=== PATIENT | female | born 1970 | race Native Hawaiian/Other Pacific Islander ===

== ENCOUNTER 2017-05-05 23:29 | Emergency (ER) | payer OTHER, BC ==
[2017-05-06 00:10] VITALS: BP 140/91
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
[2017-05-06] MEDS ORDERED: MOTRIN PO ONE (02:10)
[2017-05-06] MEDS ORDERED: FLEXERIL PO ONE (02:12)
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
== END 2017-05-06 06:18 | disposition home or self-care (01) ==
LOC: ED 23:29
DX: G44.319 Acute post-traumatic headache, not intractable (principal); M25.50 Pain in unspecified joint; M54.5 Low back pain; V49.49XA Driver injured in collision with other motor vehicles in traffic accident, initial encounter; Y93.9 Activity, unspecified; Y92.9 Unspecified place or not applicable; Y99.9 Unspecified external cause status
CPT/HCPCS: 70450; 72125; 72131; 99283

== ENCOUNTER 2017-06-26 00:52 | Emergency (ER) | payer BC, OTHER ==
[2017-06-26 02:15] LABS: Eosinophils % (Auto) 0.2 % (0.0-4.3); Hematocrit 40.1 % (30.3-42.9); Hemoglobin 13.8 gm/dl (10.1-14.3); Mean Corpuscular HGB Conc 34 % (30-34); Mean Corpuscular Hemoglobin 31 pg (28-32); Mean Corpuscular Volume 90 fl (79-97); Platelet Count 294 K/mm3 (140-440); Red Blood Count 4.44 M/mm3 (3.65-5.03); Red Cell Distribution Width 12.9 % (13.2-15.2); White Blood Count 10.1 K/mm3 (4.5-11.0)
[2017-06-26 02:32] LABS: Alanine Aminotransferase 27 units/L (7-56); Albumin 4.4 g/dL (3.9-5); Albumin/Globulin Ratio 1.3 %; Alkaline Phosphatase 66 units/L (35-129); Anion Gap 17 mmol/L; Blood Urea Nitrogen 11 mg/dL (7-17); Calcium 9.6 mg/dL (8.4-10.2); Carbon Dioxide 26 mmol/L (22-30); Chloride 98.2 mmol/L (98-107); Glucose 173 mg/dL (65-100); Lipase 19 units/L (13-60); Potassium 3.6 mmol/L (3.6-5.0); Sodium 138 mmol/L (137-145); Total Protein 7.7 g/dL (6.3-8.2)
[2017-06-26 03:48] LABS: Bilirubin,Urine NEG (Negative); Blood,Urine NEG (Negative); Ketones,Urine 80 mg/dL (Negative); Leukocyte Esterase,Urine TR (Negative); Mucus,Urine 2+ /HPF; Nitrite,Urine NEG (Negative); Urobilinogen,Urine < 2.0 mg/dL (<2.0)
[2017-06-26] MEDS ORDERED: NACL 0.9% 1000 ML 1,000 ML IV ONE (09:12)
[2017-06-26] MEDS ORDERED: ZOFRAN IV ONE (09:12)
[2017-06-26] MEDS ORDERED: NACL ONE (10:00)
--- NOTE | 2017-06-26 10:36 | Cat Scan Report ---
CT SCAN OF THE ABDOMEN AND PELVIS WITH CONTRAST: HISTORY: Abdominal pain. TECHNIQUE: Helical CT in 1.25mm intervals following IV contrast. Sagittal and coronal reconstructions. FINDINGS: The liver is normal in size and is without focal defect. No gallstones or biliary dilatation are noted. Cholecystectomy changes are noted. The spleen and pancreas demonstrate a normal size and attenuation with no evidence of abnormal mass. The kidneys are normal in size and position with no evidence of hydronephrosis or mass. The adrenal glands are normal. The abdominal aorta is normal. Surgical suture lines are identified in the mid to distal small bowel. There is no evidence for focal bowel wall thickening or obstruction. Normal appendix. A 2.0 cm left ovarian cyst is identified. The right ovary and uterus are unremarkable. There are multiple nabothian cysts in the cervix measuring up to 1.2 cm. There is no evidence of peritoneal air or fluid. There is no evidence of any abnormal masses or fluid collections within the pelvis. No adenopathy is identified. The bladder is normal. Heart size is normal. The visualized lung bases are clear. The bony structures are within normal limits. IMPRESSION: No acute inflammatory process is appreciated. 2.0 cm left ovarian cyst. Surgical changes.
[2017-06-26] MEDS ORDERED: MORPHINE IV ONE (11:02)
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
[2017-06-26 12:07] VITALS: BP 141/84
== END 2017-06-26 12:08 | disposition home or self-care (01) ==
LOC: ED 00:52
DX: N83.202 Unspecified ovarian cyst, left side (principal); R10.10 Upper abdominal pain, unspecified; R11.2 Nausea with vomiting, unspecified; G89.29 Other chronic pain; Z90.49 Acquired absence of other specified parts of digestive tract
CPT/HCPCS: 36415; 74177; 80053; 81001; 82962; 83690; 84484; 85025; 93005; 93010; 96361; 96374; 96375; 99284; J2270; J2405; J7030; Q9967